=== PATIENT | male | born 1965 | race Caucasian/White ===

== ENCOUNTER 2018-10-23 09:32 | Emergency (ER) | payer OTHER ==
[~2018-10-23] VITALS: Ht 188 cm; Wt 96.2 kg
[2018-10-23 10:18] LABS: BASO # 0.1 x10^3/uL (0.0-0.2); BASO % 1 % (0-3); EOS # 0.4 x10^3/uL (0.0-0.7); EOS % 6 % (0-3); HEMATOCRIT 48.5 % (39.0-53.0); HEMOGLOBIN 16.5 g/dL (13.0-17.5); LYMPH # 1.4 x10^3/uL (1.0-4.8); LYMPH % 19 % (24-48); MEAN CORPUSCULAR HEMOGLOBIN 32 pg (25-35); MEAN CORPUSCULAR HGB CONC 34 g/dL (31-37); MEAN CORPUSCULAR VOLUME 95 fL (79-100); MONO # 0.9 x10^3/uL (0.0-1.1); MONO % 13 % (0-9); NEUT # 4.7 x10^3uL (1.8-7.7); NEUT % 62 % (31-73); PLATELET COUNT 286 x10^3/uL (140-400); RED BLOOD COUNT 5.13 x10^6/uL (4.30-5.70); RED CELL DISTRIBUTION WIDTH 13.5 % (11.5-14.5); WHITE BLOOD COUNT 7.5 x10^3/uL (4.0-11.0)
--- NOTE | 2018-10-23 10:22 | RAD ---
Chest radiograph 10/23/2018 10:10 AM INDICATION: Chest pain COMPARISON: June 27, 2012 TECHNIQUE: Frontal and lateral views of the chest are provided. FINDINGS: The cardiomediastinal silhouette is within normal limits. There are no pleural effusions. There is no pulmonary vascular congestion. There is no pneumothorax. The lungs are clear. No significant osseous abnormality is identified. IMPRESSION: No acute cardiopulmonary process. Electronically signed by: Letha Mena MD (10/23/2018 10:20 AM) [facility]
--- NOTE | 2018-10-23 10:29 | PHYS DOC ---
Past History Past Medical History: GERD, Hypothyroid Past Surgical History: Tonsillectomy, Other Smoking: Non-smoker Alcohol Use: Occasionally Drug Use: None Adult General Chief Complaint Chief Complaint: CHEST PAIN HPI HPI Patient is a 53 year old male who presents with complaining of chest pain. Patient complaining of left sided chest pain as a heaviness with radiation to left shoulder as an almost constant pain for the last 1 month that getting worse with taking a deep breath. Patient denies shortness of breath, palpitation , nausea and vomiting, fever and chills. Patient complaining of mild cough and dizziness with standing up. Patient was seen for routine physical at his primary care physician office and sent to ER because of abnormal EKG. Patient states he is taking Naprosyn for knee pain and had history of pleurisy the same pain. Patient had history of DVT without PE in 2011 and currently doesn't take any medication for DVT. Patient doesn't have any cardiac risk factors except for family history of coronary artery disease. Review of Systems Review of Systems Constitutional: Denies fever or chills [] Eyes: Denies change in visual acuity, redness, or eye pain [] HENT: Denies nasal congestion or sore throat [] Respiratory: Denies cough or shortness of breath [] Cardiovascular: No additional information not addressed in HPI [] GI: Denies abdominal pain, nausea, vomiting, bloody stools or diarrhea [] : Denies dysuria or hematuria [] Musculoskeletal: Denies back pain or joint pain [] Integument: Denies rash or skin lesions [] Neurologic: Denies headache, focal weakness or sensory changes [] Endocrine: Denies polyuria or polydipsia [] All other systems were reviewed and found to be within normal limits, except as documented in this note. Current Medications Current Medications Current Medications Medications (Trade) Dose Ordered Sig/Bryson Start Time Stop Time Status Last Admin Dose Admin Aspirin (Children'S Aspirin) 324 mg 1X ONCE 10/23/18 10:00 10/23/18 10:01 UNV Nitroglycerin (Nitrostat) 0.4 mg PRN Q5MIN PRN 10/23/18 10:00 10/24/18 09:59 UNV Allergies Allergies Allergies Coded Allergies Type Severity Reaction Last Updated Verified Erythromycin Lactobionate Allergy Intermediate HEADACHE 10/23/18 Yes Physical Exam Physical Exam Constitutional: Well developed, well nourished, mild distress, non-toxic appearance. [] HENT: Normocephalic, atraumatic Eyes: PERRLA, EOMI, conjunctiva normal, no discharge. [] Neck: Normal range of motion, no tenderness, supple, no stridor. [] Cardiovascular:Heart rate regular rhythm, no murmur [] Lungs & Thorax: Bilateral breath sounds clear to auscultation [] Abdomen: Bowel sounds normal, soft, no tenderness, no masses, no pulsatile masses. [] Skin: Warm, dry, no erythema, no rash. [] Back: No tenderness, no CVA tenderness. [] Extremities: No tenderness, no cyanosis, no clubbing, ROM intact, no edema. [] Neurologic: Alert and oriented X 3, normal motor function, normal sensory function, no focal deficits noted. [] Psychologic: Affect normal, judgement normal, mood normal. [] Current Patient Data Vital Signs Vital Signs Date Time Temp Pulse Resp B/P (MAP) Pulse Ox O2 Delivery O2 Flow Rate FiO2 10/23/18 09:42 75 15 96 Room Air EKG EKG EKG interpreted by me. EKG at 0 944 showed normal sinus rhythm at rate of 75, no acute ST and T-wave abnormalities.[] Radiology/Procedures Radiology/Procedures [address] [address] IMAGING REPORT Signed PATIENT: XOCHITL LUNA ACCOUNT: [id number] : 1965 LOCATION: ER AGE: 53 SEX: M EXAM STATUS: REG ER ORD. PHYSICIAN: KARTHIKEYAN SWANSON MD REASON: chest pain PROCEDURE: CHEST PA & LATERAL Chest radiograph 10/23/2018 10:10 AM INDICATION: Chest pain COMPARISON: June 27, 2012 TECHNIQUE: Frontal and lateral views of the chest are provided. FINDINGS: The cardiomediastinal silhouette is within normal limits. There are no pleural effusions. There is no pulmonary vascular congestion. There is no pneumothorax. The lungs are clear. No significant osseous abnormality is identified. IMPRESSION: No acute cardiopulmonary process. Electronically signed by: Mumtaz Higgins MD (10/23/2018 10:20 AM) [facility] DICTATED AND SIGNED BY: MUMTAZ HIGGINS MD DATE: 10/23/18 1020 CC: KIMI OZUNA MD; KARTHIKEYAN SWANSON MD ~ Course & Med Decision Making Course & Med Decision Making Pertinent Labs and Imaging studies reviewed. (See chart for details) Evaluation of patient in ER showed 53-year-old male patient without cholecystectomy except for family history of coronary artery disease sent from primary care physician office because of chest pain for 1 month. Patient had unremarkable physical exam and labs and EKG. D-dimer was unremarkable. Plan to discharge patient home with diagnosis of pleurisy. Dragon Disclaimer Dragon Disclaimer This electronic medical record was generated, in whole or in part, using a voice recognition dictation system. Departure Departure: Impression: Primary Impression: Pleuritic chest pain Disposition: HOME, SELF-CARE (at 1133) Condition: STABLE Referrals: KIMI OZUNA MD (PCP) Patient Instructions: Pleurisy Additional Instructions: Drink plenty of liquids Follow-up with your primary care physician in 2-3 days Return to ER if not getting better Scripts Naproxen (NAPROSYN) 500 Mg Tablet 500 MG PO BID for pain, #20 TAB Prov: KARTHIKEYAN SWANSON MD 10/23/18 Methylprednisolone (MEDROL) 4 Mg Tab.ds.pk 1 PKG PO UD for inflammation, #1 PKG Prov: KARTHIKEYAN SWANSON MD 10/23/18 KARTHIKEYAN SWANSON MD Oct 23, 2018 10:29
[2018-10-23] MEDS ORDERED: NITROGLYCERIN SUBLINGUAL 0.4 MG BOTTLE OF 25. SL PRN (10:30)
[2018-10-23] MEDS ORDERED: ASPIRIN 81 MG TAB.CHEW PO ONE (10:30)
[2018-10-23 10:38] LABS: ALBUMIN 3.7 g/dL (3.4-5.0); ALBUMIN/GLOBULIN RATIO 1.1 (1.0-1.7); CALCIUM 9.1 mg/dL (8.5-10.1); CREATININE 1.1 mg/dL (0.7-1.3); GFR 69.5; MAGNESIUM 1.8 mg/dL (1.8-2.4); POTASSIUM 4.1 mmol/L (3.5-5.1); TOTAL BILIRUBIN 0.7 mg/dL (0.2-1.0); TOTAL PROTEIN 7.2 g/dL (6.4-8.2)
[2018-10-23] MEDS ORDERED: METH4TAB2 PO (11:34)
[2018-10-23] MEDS ORDERED: NAPR-683 PO (11:34)
[2018-10-23 12:10] VITALS: BP 152/96
--- NOTE | 2018-10-24 14:27 | EKG ---
[address] [address] Test Date: 2018-10-23 Test Time: 09:44:02 Pat Name: XOCHITL LUNA Department: Room: Gender: M [employer] Clerk: : 1965 Requested By: KARTHIKEYAN SWANSON Order Number: [id number] Reading MD: Dario Jeong MD Measurements Intervals [place] Rate: 75 P: 38 AL: 154 QRS: 59 QRSD: 104 T: 35 QT: 358 QTc: 402 Interpretive Statements SINUS RHYTHM Electronically Signed On 10-25-2018 14:40:07 CDT by Dario Jeong MD
== END 2018-10-23 12:10 | disposition home or self-care (01) ==
LOC: ER 09:32
DX: R07.81 Pleurodynia (principal); K21.9 Gastro-esophageal reflux disease without esophagitis; E03.9 Hypothyroidism, unspecified; Z86.718 Personal history of other venous thrombosis and embolism; Z88.1 Allergy status to other antibiotic agents
CPT/HCPCS: 36415; 71046; 80053; 82550; 83690; 83735; 83880; 84484; 85025; 85379; 93005; 99284-25